=== PATIENT | female | born 1980 | race Caucasian/White ===

== ENCOUNTER → 2018-04-02 | Outpatient (CLI) | payer OTHER ==
--- NOTE | 2018-04-02 16:52 | RAD ---
Chest, 2 views, 04/02/2018: HISTORY: Shortness of breath, cough The heart size and pulmonary vascularity are normal. No pulmonary infiltrate is seen. There is no evidence of pleural fluid. IMPRESSION: No acute cardiopulmonary abnormality is detected. Electronically signed by: Jabari Jain MD (04/02/2018 4:49 PM) [facility]
== END | disposition home or self-care (01) ==
LOC: PMG 14:16
PROVIDERS: ATTEND Physician Assistant Medical
DX: R06.02 Shortness of breath (principal); R05 Cough
CPT/HCPCS: 71046

== ENCOUNTER → 2019-04-08 | Outpatient (CLI) | payer OTHER ==
[~2019-04-08] MED LIST: IOHEXOL 350 MG/ML 100 ML VIAL. IV ONE
--- NOTE | 2019-04-08 09:14 | RAD ---
EXAM: CT ANGIOGRAPHY HEAD DATE: 04/08/2019 8:00 AM INDICATION: Visual disturbance TECHNIQUE: 5 mm axial tomographic images were obtained through the head before contrast. CTA angiogram was obtained after IV bolus administration of 75 cc of Omnipaque 350. Multiplanar reconstruction images to include MIP and 3-D reconstruction images are submitted. One or more of the following dose reduction techniques were utilized: Automated exposure control (AEC), Adjustment of mA and/or kV according to patient size, Use of iterative reconstruction technique such as ASiR, CT scan done according to ALARA and image gently/image wisely COMPARISON: None. FINDINGS: Noncontrast CT: The brain parenchyma is normal in attenuation. No intra- or extra-axial mass or fluid collection. No hyperdense intracranial hemorrhage. The ventricles are normal in size and configuration without midline shift. There is normal hernandez-white matter differentiation. The subarachnoid cisterns are patent. The visualized paranasal sinuses are well aerated. The mastoid air cells are clear. The visualized portions of the orbits are normal. No aggressive osseous lesion or fracture. CTA Head: The visualized distal internal carotid arteries, anterior and middle cerebral arteries are patent and normal caliber. The distal vertebral arteries, basilar artery, and posterior cerebral arteries are patent and normal caliber. No aneurysm or arteriovenous malformation is seen. IMPRESSION: No aneurysm. No arterial stenosis or occlusion. Electronically signed by: Douglas Johnson MD (04/08/2019 9:11 AM) [id number]
== END ==
LOC: CT 07:47
PROVIDERS: ATTEND Physician Assistant Medical
DX: H53.9 Unspecified visual disturbance (principal)
CPT/HCPCS: 70496; Q9967